=== PATIENT | female | born 1960 | race Caucasian/White ===

== ENCOUNTER → 2017-09-07 | Day surgery (SDC) | payer BC ==
[~2017-09-07] MED LIST: Bupivacaine 0.5% 30 ML SDV ONE; Dexamethasone 4 MG/ML 5 ML MDV ONE; HYDROmorphone 0.5 MG/0.5 ML Syringe IVPUSH PRN; HYDROmorphone 1 MG/ML Syringe ONE; Ketorolac 30 MG/ML SDV IVPUSH ONE; Lactated Ringers 1,000 ML ONE; Lidocaine 1% with EPINEPHrine 1:100,000 20 ML MDV ONE; Lidocaine 1%/Sod Bicarbonate in NS 8.4% 1 ML Syringe IV PRN; Midazolam 1 MG/ML 2 ML SDV ONE; Neostigmine Methylsulfate 1 MG/ML 5 ML Syringe ONE; Ondansetron 4 MG/2 ML SDV IVPUSH PRN; Ondansetron 4 MG/2 ML SDV ONE; Propofol 200 MG/20 ML SDV ONE; Rocuronium 50 MG/5 ML Vial ONE; Scopolamine 1 MG Transdermal Patch TOP ONE; Sodium Chloride 0.9% 10 ML Syringe FLUSH PRN; Sodium Chloride 0.9% 50 ML SDV ONE; ceFAZolin 1 GM Vial ONE; fentaNYL 100 MCG/2 ML SDV IVPUSH PRN; fentaNYL 250 MCG/5 ML SDV ONE
[2017-09-07] MEDS: Lactated Ringers 1,000 ML IV SCH ×2 (06:50→10:29)
--- NOTE | 2017-09-07 07:22 | PCM.PREANE ---
Preanesthetic Assessment - Anesthesia/Transfusion/Family Hx Anesthesia History: Prior Anesthesia Without Reaction Type of Anesthesia Reaction: Excessive Nausea/Vomiting Family History of Anesthesia Reaction: No Transfusion History: No Prior Transfusion(s) - Review of Systems General: No Symptoms, Other Pulmonary: Other (sleep apnea utilizing a CPAP) Cardiovascular: Other (HTN, high cholesterol) Gastrointestinal: Other (GERD) Neurological: Headache (migraines on a weekly basis, doctoring for ruling out MS ), Other (vertigo, migraines) - Physical Assessment NPO Status Date: 09/06/17 NPO Status Time: 22:00 Pulse: 64 O2 Sat by Pulse Oximetry: 96 Respiratory Rate: 16 Blood Pressure: 115/85 Weight: 78.018 kg ASA Class: 2 Mental Status: Alert & Oriented x3 Airway Class: Mallampati = 2 Dentition: Reports: Normal Dentition Thyro-Mental Finger Breadths: 3 Mouth Opening Finger Breadths: 3 ROM/Head Extension: Full (pt complains of TMJ and right jaw pops out of place) Lungs: Clear to Auscultation, Normal Respiratory Effort Cardiovascular: Regular Rate, Regular Rhythm - Lab Values: Laboratory Last Values WBC 5.56 K/mm3 (3.98-10.04) 09/07/17 06:35 RBC 4.55 M/mm3 (3.98-5.22) 09/07/17 06:35 Hgb 13.0 gm/L (11.2-15.7) 09/07/17 06:35 Hct 39.6 % (34.1-44.9) 09/07/17 06:35 MCV 87.0 fl (79.4-94.8) 09/07/17 06:35 MCH 28.6 pg (25.6-32.2) 09/07/17 06:35 MCHC 32.8 g/dl (32.2-35.5) 09/07/17 06:35 RDW Std Deviation 41.7 fL (36.4-46.3) 09/07/17 06:35 Plt Count 240 K/mm3 (182-369) 09/07/17 06:35 MPV 10.5 fl (9.4-12.3) 09/07/17 06:35 Neut % (Auto) 53.9 % (34.0-71.1) 09/07/17 06:35 Lymph % (Auto) 33.3 % (19.3-51.7) 09/07/17 06:35 Hand % (Auto) 7.4 % (4.7-12.5) 09/07/17 06:35 Eos % (Auto) 4.1 (0.7-5.8) 09/07/17 06:35 Baso % (Auto) 1.1 % (0.1-1.2) 09/07/17 06:35 Neut # (Auto) 3.00 K/mm3 (1.56-6.13) 09/07/17 06:35 Lymph # (Auto) 1.85 K/mm3 (1.18-3.74) 09/07/17 06:35 Hand # (Auto) 0.41 K/mm3 (0.24-0.36) H 09/07/17 06:35 Eos # (Auto) 0.23 K/mm3 (0.04-0.36) 09/07/17 06:35 Baso # (Auto) 0.06 K/mm3 (0.01-0.08) 09/07/17 06:35 Blood Type O NEGATIVE 09/07/17 06:35 - Allergies Allergies/Adverse Reactions: Allergies Allergy/AdvReac Type Severity Reaction Status Date / Time Dairy Products Allergy Hives Verified 07/22/16 18:01 gluten Allergy Cough Verified 07/22/16 16:50 wheat Allergy Cough Verified 07/22/16 16:50 baking yeast Allergy Hives Uncoded 07/22/16 18:01 armijo's yeast Allergy Hives Uncoded 07/22/16 18:01 cucumbers Allergy Hives Uncoded 07/22/16 18:01 latex Allergy Airway Uncoded 07/22/16 16:49 Tightness kwan Allergy Hives Uncoded 07/22/16 18:01 tomatoes Allergy Hives Uncoded 07/22/16 18:01 - Blood Blood Available: No Product(s) Available: None - Anesthesia Plan Pre-Op Medication Ordered: None Beta Nabeel: Propranolol Med Last Dose Date: 09/07/17 Med Last Dose Time: 06:50 - Acknowledgements Anesthesia Type Planned: General Anesthesia Pt an Appropriate Candidate for the Planned Anesthesia: Yes Alternatives and Risks of Anesthesia Discussed w Pt/Guardian: Yes Pt/Guardian Understands and Agrees with Anesthesia Plan: Yes PreAnesthesia Questionnaire Cardiovascular History: Reports: High Cholesterol - SUBSTANCE USE Smoking Status *Q: Never Smoker Second Hand Smoke Exposure: No - HOME MEDS Home Medications: Home Meds Acetaminophen with Codeine [Tylenol with Codeine #3 Tablet] 1 tab PO Q6H PRN [History] Pravastatin Sodium [Pravastatin (Pravachol)] 40 mg PO DAILY 07/22/16 [History] - CURRENT (IN HOUSE) MEDS Current Meds: Current Medications Lactated Ringer's (Ringers, Lactated) 1,000 mls @ 125 mls/hr IV ASDIRECTED BELLA Stop: 09/07/17 18:00 Lidocaine/Sodium Bicarbonate (Buffered Lidocaine 1% In Ns 8.4%) 0.25 ml IV ONETIME PRN PRN Reason: Prior to IV Start Stop: 09/07/17 18:00 Sodium Chloride (Saline Flush) 10 ml FLUSH ASDIRECTED PRN PRN Reason: Keep Vein Open Stop: 09/07/17 18:00 Discontinued Medications Cefazolin Sodium (Ancef) Confirm Administered Dose 2 gm .ROUTE .STK-MED ONE Stop: 09/07/17 07:15 Dexamethasone (Dexamethasone) Confirm Administered Dose 20 mg .ROUTE .STK-MED ONE Stop: 09/07/17 07:15 Fentanyl (Sublimaze) Confirm Administered Dose 250 mcg .ROUTE .STK-MED ONE Stop: 09/07/17 07:15 Hydromorphone HCl (Dilaudid) Confirm Administered Dose 1 mg .ROUTE .STK-MED ONE Stop: 09/07/17 07:15 Midazolam HCl (Versed 1 Mg/Ml) Confirm Administered Dose 2 mg .ROUTE .STK-MED ONE Stop: 09/07/17 07:15 Ondansetron HCl (Zofran) Confirm Administered Dose 4 mg .ROUTE .STK-MED ONE Stop: 09/07/17 07:15 Propofol (Diprivan 20 Ml) Confirm Administered Dose 200 mg .ROUTE .STK-MED ONE Stop: 09/07/17 07:15 Rocuronium [place] (Zemuron) Confirm Administered Dose 50 mg .ROUTE .STK-MED ONE Stop: 09/07/17 07:15
--- NOTE | 2017-09-07 09:35 | PCM.POSTAN ---
POST ANESTHESIA ASSESSMENT - MENTAL STATUS Mental Status: Alert, Oriented - VITAL SIGNS Pulse Rate: 59 SaO2: 98 Resp Rate: 14 Blood Pressure: 107/67 Temperature: 36.1 C - RESPIRATORY Respiratory Status: Respiratory Rate WNL, Airway Patent, O2 Saturation Stable, Supplemental Oxygen - CARDIOVASCULAR CV Status: Pulse Rate WNL, Blood Pressure Stable - GASTROINTESTINAL GI Status: No Symptoms - PAIN Pain Score: 0 - POST OP HYDRATION Hydration Status: Adequate & Stable
--- NOTE | 2017-09-07 09:47 | PCM.OPNOTE ---
- General Post-Op/Procedure Note Date of Surgery/Procedure: 09/07/17 Operative Procedure(s): Laparoscopically assisted total vaginal hysterectomy with bilateral salpingo-oophorectomy Findings: Patient is noted to have normal size uterus, reasonable relaxation noted. Fallopian tubes appeared to be status post tubal ligation. Ovaries appeared be normal, small, consistent with postmenopausal status. Appendix was surgically absent. Liver edge was normal. Anterior and posterior cul-de-sacs were without significant scarring. Pre Op Diagnosis: Postmenopausal uterine bleeding Post-Op Diagnosis: Same Anesthesia Technique: General ET Tube Other Anesthesia Type: Marcaine 0.5%20 mL total, lidocaine quarter % with epinephrine-20 mL Primary Surgeon: Mars Gaona Secondary Surgeon: Werner Gerard Anesthesia Provider: Dayna Alanis Medical Artist: Jose Bird Reason Medical Artist Was Necessary: Patient safety, quality of care, retraction Role of Medical Artist: Retraction and assistance in surgery. Fluid Replacement, Intraop: 2,700 Output, Urine Amount: 600 EBL in mLs: 100 Drain/Tube Comments:: Indwelling bladder catheter during surgery only. Removed at the end of the case. Complications: None Condition: Good Free Text/Narrative:: Surgery duration: 54 minutes The patient was taken to the operating room placed in supine position on the operating table. She received 2 g of Ancef preoperatively for infection prophylaxis. She had signed consent previously. After adequate anesthesia patient was placed in a dorsal lithotomy position. It should be noted she had sequential compression stockings in place for DVT prophylaxis. A uterine manipulator was placed as was an latex free indwelling bladder catheter. This was done after adequate prepping and draping. The patient was placed in supine position and four laparoscopic port sites were developed. Marcaine 0.5% approximately 3-5 mL was injected at each site. Varies needle was placed and pneumoperitoneum was achieved with 3 L of CO2. Infraumbilical, suprapubic and 2 lateral port sites were developed. Under laparoscopic guidance the upper portion of the hysterectomy was performed. The right infundibulopelvic ligament was elevated and crossclamped using the endoseal computerized cautery device. The round ligament was taken down to the broad ligament. At this time attention was turned to the left side and the left infundibulopelvic ligament and the triple ligament were then taken down in a similar fashion. Broad ligament was taken down to the area of the uterine vasculature. Uterine vasculature was developed in the usual fashion using the cautery system. Both uterine arteries were identified and developed. Vaginal approach was then undertaken. The patient was placed in the dorsal lithotomy position and a weighted speculum was placed in the vagina. The cervix was injected with lidocaine quarter percent with epinephrine 20 mL total. A full circumference incision was made through the epithelium around the cervix. Posterior cul-de-sac was entered without problems. The left uterosacral ligament and then the right uterosacral were taken down using the Enseal vessel closure system. The cardinal ligament and what remained of the uterine vascular vessels and cervical branches of the vessels were managed with the Enseal vessel closure system on each side. Anterior cul-de-sac was then entered and the remaining portion of broad ligament on the right side and a small portion of broad ligament remaining on the left side were then developed in the usual fashion. Uterus was then removed. At this point the uterus was completely removed and sent as specimen. The vaginal cuff was then run with a locked running suture of 0 Monocryl from the 2 o'clock position to the 10 o'clock position. The vagina was closed with a running locked suture of 0 Monocryl. Hemostasis was confirmed this time and no bleeding was noted. Laparoscopy was then performed to ensure hemostasis. Pneumoperitoneum was reestablished and the laparoscope was placed. The pelvis was found to be hemostatically intact. There was no evidence of any bowel adhesion to the vaginal cuff area noted. The sleeves were removed under direct visualization and the upper sleeve was removed after reversal of the pneumoperitoneum. Each of these sites were closed with a single interrupted suture of 3-0 Monocryl. They were further approximated with Dermabond skin glue. At this point the patient was awakened from general endotracheal anesthesia. The Lynch catheter had been removed by this time. She is discharged from the operating room in good condition.
[2017-09-07] MEDS: Acetaminophen/oxyCODONE 325-5 MG Tab PO PRN ×2 (12:15→14:00)
[2017-09-07 14:28] VITALS: BP 110/66
== END | disposition home or self-care (01) ==
LOC: JD.SDS 06:24
PROVIDERS: ATTEND Obstetrics & Gynecology
DX: D25.9 Leiomyoma of uterus, unspecified (principal); N72 Inflammatory disease of cervix uteri; N80.0 Endometriosis of uterus; J30.9 Allergic rhinitis, unspecified; M19.90 Unspecified osteoarthritis, unspecified site; H93.299 Other abnormal auditory perceptions, unspecified ear; H53.8 Other visual disturbances; K21.9 Gastro-esophageal reflux disease without esophagitis; I10 Essential (primary) hypertension; N87.9 Dysplasia of cervix uteri, unspecified; G47.00 Insomnia, unspecified; G43.909 Migraine, unspecified, not intractable, without status migrainosus; E78.00 Pure hypercholesterolemia, unspecified; Z91.018 Allergy to other foods; Z91.012 Allergy to eggs; Z91.048 Other nonmedicinal substance allergy status; Z91.040 Latex allergy status; Z79.899 Other long term (current) drug therapy; Z90.49 Acquired absence of other specified parts of digestive tract; Z90.89 Acquired absence of other organs; Z98.890 Other specified postprocedural states
CPT/HCPCS: 36415; 58552; 80053; 81001; 85025; 86850; 86900; 86901; A9270; J0690; J1100; J1170; J1885; J2250; J2405; J2710; J3010; J7120; 00840; J2704

== ENCOUNTER 2020-11-14 09:20 | Day surgery (SDC) | payer BC, OTHER ==
[~2020-11-14 09:20] MED LIST changes: -Bupivacaine 0.5% 30 ML SDV ONE; -Dexamethasone 4 MG/ML 5 ML MDV ONE; -HYDROmorphone 0.5 MG/0.5 ML Syringe IVPUSH PRN; -HYDROmorphone 1 MG/ML Syringe ONE; -Ketorolac 30 MG/ML SDV IVPUSH ONE; +Lactated Ringers 1,000 ML IV SCH; -Lactated Ringers 1,000 ML ONE; -Lidocaine 1% with EPINEPHrine 1:100,000 20 ML MDV ONE; +Lidocaine 1%/Sod Bicarbonate in NS 8.4% 1 ML Syringe IDERM PRN; -Lidocaine 1%/Sod Bicarbonate in NS 8.4% 1 ML Syringe IV PRN; -Midazolam 1 MG/ML 2 ML SDV ONE; -Neostigmine Methylsulfate 1 MG/ML 5 ML Syringe ONE; -Ondansetron 4 MG/2 ML SDV IVPUSH PRN; -Ondansetron 4 MG/2 ML SDV ONE; -Propofol 200 MG/20 ML SDV ONE; -Rocuronium 50 MG/5 ML Vial ONE; -Scopolamine 1 MG Transdermal Patch TOP ONE; -Sodium Chloride 0.9% 50 ML SDV ONE; -ceFAZolin 1 GM Vial ONE; -fentaNYL 100 MCG/2 ML SDV IVPUSH PRN; -fentaNYL 250 MCG/5 ML SDV ONE
[2020-11-14] MEDS ORDERED: Scopolamine 1.5 MG Transdermal Patch TOP ONE (10:10)
[2020-11-14] MEDS ORDERED: Ropivacaine 0.5% 5 MG/ML 30 ML SDV ONE (10:11)
[2020-11-14] MEDS ORDERED: Dexmedetomidine 200 MCG/2 ML SDV ONE (10:11)
[2020-11-14] MEDS ORDERED: Midazolam 1 MG/ML 2 ML SDV ONE (10:12)
[2020-11-14] MEDS ORDERED: fentaNYL 100 MCG/2 ML SDV ONE (10:14)
--- NOTE | 2020-11-14 10:14 | PCM.PREANE ---
Preanesthetic Assessment - Anesthesia/Transfusion/Family Hx Anesthesia History: Prior Anesthesia Without Reaction Family History of Anesthesia Reaction: No Transfusion History: No Prior Transfusion(s) - Review of Systems General: No Symptoms Pulmonary: No Symptoms Cardiovascular: No Symptoms Gastrointestinal: Other (Occasional nausea/heartburn. No symptoms today. ) Neurological: Pre-Existing Deficit (Neck pain from injury at c3-4, many years of physical therapy but does still have pain with extension. ), Other Other: Reports: Neck Pain (TMY, right joint most painful. ), Anxiety - Physical Assessment NPO Status Date: 11/13/20 NPO Status Time: 22:30 Vital Signs: Last Vital Signs Temp 36.3 C 11/14/20 09:15 Pulse 84 11/14/20 09:15 Resp 17 11/14/20 09:15 BP 117/74 11/14/20 09:15 Pulse Ox 95 11/14/20 09:15 Height: 1.6 m Weight: 71.8 kg ASA Class: 2 Mental Status: Alert & Oriented x3 Airway Class: Mallampati = 2 Dentition: Reports: Bridge (Permanent. ) Thyro-Mental Finger Breadths: 3 Mouth Opening Finger Breadths: 3 ROM/Head Extension: Full Lungs: Clear to Auscultation, Normal Respiratory Effort Cardiovascular: Regular Rate, Regular Rhythm - Lab Values: Laboratory Last Values MRSA (PCR) Negative 11/06/20 16:10 - Allergies Allergies/Adverse Reactions: Allergies Allergy/AdvReac Type Severity Reaction Status Date / Time banana Allergy Cannot Verified 11/13/20 11:57 Remember barley Allergy Cannot Verified 11/13/20 11:57 Remember black pepper Allergy Cannot Verified 11/13/20 11:57 Remember blackberry Allergy Cannot Verified 11/13/20 11:57 Remember cheese Allergy Cannot Verified 11/13/20 11:57 Remember cranberry Allergy Cannot Verified 11/13/20 11:57 Remember cucumber Allergy Cannot Verified 11/13/20 11:57 Remember Dairy Products Allergy Hives Verified 11/13/20 11:57 Egg Derived Allergy Cannot Verified 11/13/20 11:57 Remember gluten Allergy Cough Verified 11/13/20 11:57 kiwi Allergy Cannot Verified 11/13/20 11:57 Remember Latex, Natural Rubber Allergy Cannot Verified 11/13/20 11:57 Remember Milk Containing Products Allergy Cannot Verified 11/13/20 11:57 Remember mushroom Allergy Cannot Verified 11/13/20 11:57 Remember pineapple Allergy Cannot Verified 11/13/20 11:57 Remember kwan Allergy Cannot Verified 11/13/20 11:57 Remember tomato Allergy Cannot Verified 11/13/20 11:57 Remember wheat Allergy Cough Verified 11/13/20 11:57 Yeast Allergy Cannot Verified 11/13/20 11:57 Remember disinfectant products Allergy Cannot Uncoded 11/13/20 11:57 Remember white pepper Allergy Cannot Uncoded 11/13/20 11:57 Remember - Anesthesia Plan Pre-Op Medication Ordered: Anxiolytic - Acknowledgements Anesthesia Type Planned: Regional Block (Preopertive nerve block for post operative painn control requested by Dr. Galloway. ), MAC Pt an Appropriate Candidate for the Planned Anesthesia: Yes Alternatives and Risks of Anesthesia Discussed w Pt/Guardian: Yes Pt/Guardian Understands and Agrees with Anesthesia Plan: Yes PreAnesthesia Questionnaire HEENT History: Reports: Allergic Rhinitis, Sinusitis, Other (See Below) Other HEENT History: tmj pain Cardiovascular History: Reports: High Cholesterol, Other (See Below) Other Cardiovascular History: SVT Respiratory History: Reports: Sleep Apnea, Other (See Below) Other Respiratory History: uses cpap Gastrointestinal History: Reports: GERD Genitourinary History: Reports: None Other OB/BYN History: menorrhagia Musculoskeletal History: Reports: Arthritis, Osteoarthritis, Other (See Below) Other Musculoskeletal History: hallux rigidus, hammertoe, foot dislocation, foot pain Neurological History: Reports: Migraines, Vertigo Other Psychiatric History: fatigue, insomnia Endocrine/Metabolic History: Reports: Diabetes, Gestational Hematologic History: Reports: None Immunologic History: Reports: None Oncologic (Cancer) History: Reports: Basal Cell Carcinoma Dermatologic History: Reports: Eczema - Past Surgical History Head Surgeries/Procedures: Reports: None HEENT Surgical History: Reports: Tonsillectomy, Visual Cardiovascular Surgical History: Reports: None Respiratory Surgical History: Reports: None GI Surgical History: Reports: Appendectomy, Colonoscopy, EGD Female Surgical History: Reports: Section, Hysterectomy Male Surgical History: Reports: None Endocrine Surgical History: Reports: None Neurological Surgical History: Reports: None Other Musculoskeletal Surgeries/Procedures:: bunion correction syrgerym foot surgery, knee injections, fusion 2nd toe Oncologic Surgical History: Reports: None - SUBSTANCE USE Tobacco Use Status *Q: Never Tobacco User Days Per Week of Alcohol Use: 1 Number of Drinks Per Day: 1 Total Drinks Per Week: 1 Recreational Drug Use History: No - HOME MEDS Home Medications: Home Meds Eszopiclone 2 mg PO BEDTIME PRN 09/07/17 [History] L.acidoph,Paracasei, B.lactis [Probiotic] 1 cap PO DAILY 09/07/17 [History] Multivitamin [Multivitamins] 1 each PO DAILY 09/07/17 [History] Betamethasone Dipropionate [Diprosone 0.05% Crm] 1 dose TOP ASDIRECTED PRN 11/13/20 [History] Calcium Carb/Vitamin D3/Vit K1 [Calcium + D Soft Chewable Tab] 1 tab PO DAILY 11/13/20 [History] Cholecalciferol (Vitamin D3) [Vitamin D3] 1,000 unit PO DAILY 11/13/20 [History] Diclofenac Sodium [Voltaren 1% Gel] 1 dose TOP TID PRN 11/13/20 [History] Halobetasol [Ultravate] 1 dose TOP ASDIRECTED PRN 11/13/20 [History] Naproxen [Naprosyn] 500 mg PO Q6H PRN 11/13/20 [History] Naratriptan HCl [Amerge] 2.5 mg PO ASDIRECTED PRN 11/13/20 [History] Rizatriptan Benzoate [Rizatriptan] 10 mg PO ASDIRECTED PRN 11/13/20 [History] Rosuvastatin [Crestor] 10 mg PO DAILY 11/13/20 [History] Turmeric Root Extract [Turmeric Curcumin] 500 mg PO BEDTIME 11/13/20 [History] Verapamil HCl [Verapamil ER] 120 mg PO DAILY 11/13/20 [History] Aspirin [Aspirin EC] 325 mg PO BID #84 tab 11/14/20 [Rx] oxyCODONE 5 - 10 mg PO Q6H PRN #30 tab 11/14/20 [Rx]
[2020-11-14] MEDS ORDERED: Propofol 200 MG/20 ML SDV ONE ×4 (10:15→12:37)
[2020-11-14] MEDS ORDERED: Lidocaine 1% 4 ML ONE (11:01)
[2020-11-14] MEDS ORDERED: ceFAZolin 1 GM Vial ONE (11:06)
[2020-11-14] MEDS ORDERED: Dexamethasone 4 MG/ML 5 ML MDV ONE (11:17)
--- NOTE | 2020-11-14 11:35 | PCM.PRNOTE ---
- Free Text/Narrative Note: Postoperative regional pain control requested by surgeon. Pre-op Dx: Left metatarsalgia, hallux rigidus Surgery : Left first metatarsophalangeal joint fusion with left IIId metatarsal shortening osteotomy Anesthesia Procedure: Left Popliteal block and Left saphenous block at the ankle with U/S guidance Requesting physician: Dr. Cuong Lopez Risks and benefits discussed with the patient preoperatively including infection, bleeding, incomplete or failed block, possible nerve damage, local anesthetic toxicity. Chart reviewed, VS stable. Permit signed. Patient in PACU holding area, stable , alert and awake. Time out performed at 10:29. Oxygen 3L via NC. Patient is in right lateral decubitus position. Left lateral thigh area above the knee was prepped with Chloraprep x 1 and allowed to dry. Midazolam IV 6 mg given incrementally. Under aseptic technique, the Left common peroneal and Left tibial nerves were identified under ultrasound prior to needle insertion. Local infiltration with 1% Lidocaine. 4" Stimuplex needle #20 G was inserted under US guidance. Neuromuscular response was elicited with noted foot twitch at 0.6 mA. Under direct visualization of needle tip the injection of 10 mls of 2% Lidocaine with 1:200k epinephrine and then 0.5% Ropivacaine with 1:200k epinephrine, 20 mls (mixed with 8 mg of Dexamethasone and 40 mcg of Dexmedetomidine), in divided doses, maintaining negative aspiration was completed without problems. After that, the medial surface of the left leg above the ankle was prepped with Chloraprep and allowed to dry. Under ultrasound guidance left great saphenous vein was identified and using a 1" 24 G needle 10 mls of Ropivacaine 0.5% were injected around it in a crescent shape fashion. No local anesthetic toxicity was noted. Patient is awake, stable and tolerated the procedure well. Please see attached U/S images Time: 10:29 - 10:39
[2020-11-14] MEDS ORDERED: Lidocaine 2% with EPINEPHrine 1:200,000 20 ML SDV ONE (11:56)
[2020-11-14] MEDS: Triamcinolone Acetonide 40 MG/ML 1 ML SDV ONE ×2 (12:21→12:50)
[2020-11-14] MEDS: Bupivacaine 0.25% 10 ML SDV ONE ×2 (12:24→12:50)
--- NOTE | 2020-11-14 13:27 | CR ---
Left first toe study: Multiple radiographic fluoroscopic spot views were obtained. Study obtained utilizing C-arm device in the operating room. Study shows placement of plate and screws across the first MTP joint. Additional screw is seen. Additional pin is seen across the shaft of the second and third metatarsals. Fluoroscopy time is given as 26.6 seconds. Impression: 1. Procedural study as noted above. Diagnostic code #2
--- NOTE | 2020-11-14 13:36 | PCM48HPAN ---
Post Anesthesia Note - EVALUATION WITHIN 48HRS OF ANESTHETIC Vital Signs in Normal Range: Yes Patient Participated in Evaluation: Yes Respiratory Function Stable: Yes Airway Patent: Yes Cardiovascular Function Stable: Yes Hydration Status Stable: Yes Pain Control Satisfactory: Yes Nausea and Vomiting Control Satisfactory: Yes Mental Status Recovered: Yes Vital Signs: Last Vital Signs Temp 97.1 F 11/14/20 12:57 Pulse 71 11/14/20 13:20 Resp 20 11/14/20 13:20 BP 107/86 11/14/20 13:20 Pulse Ox 99 11/14/20 13:20
[2020-11-14 15:00] VITALS: BP 122/71; PULSE 71
--- NOTE | 2020-11-26 14:20 | PCM.OPNOTE ---
- General Post-Op/Procedure Note Date of Surgery/Procedure: 11/14/20 Operative Procedure(s): left first MTP joint fusion with left third metatarsal shortening osteotomy Pre Op Diagnosis: left foot hallux rigidus with left third metatarsalgia Post-Op Diagnosis: Same Anesthesia Technique: MAC, Regional Block Primary Surgeon: Cuong Galloway Anesthesia Provider: Osvaldo Kuhn Cabin Agent: Malia Mart EBL in mLs: 5 Complications: None Condition: Good
--- NOTE | 2020-11-26 15:06 | OR ---
DATE OF OPERATION: 11/14/2020 SURGEON: Cuong Galloway MD OPERATION PERFORMED: Left 1st metatarsophalangeal joint fusion with left 3rd metatarsal shortening osteotomy. PREOPERATIVE DIAGNOSIS: Left foot hallux rigidus with left 3rd metatarsalgia. POSTOPERATIVE DIAGNOSIS: Left foot hallux rigidus with left 3rd metatarsalgia. ANESTHESIA: MAC with regional ankle block. ANESTHESIA PROVIDER: Yoly Beaver. NOVELTIES SALES REPRESENTATIVE: Malia Mart PA-C ESTIMATED BLOOD LOSS: Less than 5 mL. COMPLICATIONS: None. CONDITION: Stable. DESCRIPTION OF PROCEDURE: The patient was identified in the preoperative holding area. Proper site was marked and identified by surgeon. The patient was taken back to the operative theater, where after adequate anesthesia, the patient's left lower extremity had a nonsterile tourniquet applied and then sterilely prepped and draped in the usual sterile fashion. OR time-out was performed. The patient received 2 g IV Ancef. Left lower extremity was exsanguinated. Tourniquet was insufflated to 250 mmHg. At this time, attention was turned to the 1st MTP joint. Dorsal incision was made over the 1st MTP joint. The patient was noted to have a lot of scarred adhesions around the 1st MTP joint. I did release the collateral ligaments. I was then able to expose the 1st metatarsal head. Guide pin was then placed in a center-center position on C-arm fluoroscopy on both AP and lateral views and the Diane 1st MTP fusion step reamers were then utilized first at 22 and then at 20. 20 was found to have adequate purchase and back to a good bony bleeding cancellous bone. At this time, the guide pin was then removed, placed kvng center-center position in the proximal phalanx of the 1st MTP and the corresponding concave reamer of a size 20 was utilized on the proximal phalanx. Osteotomes were then rongeured off both the 1st metatarsal and the proximal phalanx. Next, guide pin was placed in a retrograde fashion from the proximal phalanx across the 1st metatarsal. Drill hole was then drilled and it was measured and a 3.0 cannulated Diane compression screw was placed. It was found to have adequate compression. Next, the locking dorsal T- plate was placed under direct C-arm fluoroscopy. It was found to be in proper position. At this time, 2 2.7 screws were placed both proximally and distally to the fusion site. It was found to be roughly 10 degrees dorsiflexion at the 1st MTP joint and proper alignment. At this time, attention was turned to the 3rd metatarsal and dorsal incision was made centered between the 3rd and 4th metatarsals. This was taken down making sure to keep tendons intact and protect the neurovascular bundle. The 3rd metatarsal was exposed. C-arm fluoroscopy then was utilized to tomasz the spots for the osteotomy site. A small oscillating saw was then used for a diagonal osteotomy of the metatarsal shaft. The proximal portion was then rongeured and it was shifted proximally to the point where the cascade of the toes showed that the 3rd was shorter than the 2nd and a little longer than the 4th. At this time, 2 K-wires were placed for 2 2.0 cannulated [place] screws. These were then drilled and found to have adequate compression of the osteotomy site with good placement of the metatarsal on both AP and lateral views under C-arm fluoroscopy. Adequate saline was irrigated through both incisions. 3-0 Vicryl was used subcutaneously and nylon was used for closure of the skin. The patient was placed in a sterile soft dressing and a posterior slab splint and sent to the PACU in stable condition. PIETER /[id number] TICO
== END 2020-11-14 14:55 | disposition home or self-care (01) ==
LOC: JD.SDS 09:20
PROVIDERS: ATTEND Orthopaedic Surgery
DX: M77.42 Metatarsalgia, left foot (principal); M20.22 Hallux rigidus, left foot; M77.41 Metatarsalgia, right foot; M20.21 Hallux rigidus, right foot; G47.33 Obstructive sleep apnea (adult) (pediatric); E78.00 Pure hypercholesterolemia, unspecified; Z91.011 Allergy to milk products; Z91.012 Allergy to eggs; Z91.040 Latex allergy status; Z91.018 Allergy to other foods; Z91.09 Other allergy status, other than to drugs and biological substances; Z79.899 Other long term (current) drug therapy; Z98.890 Other specified postprocedural states
CPT/HCPCS: 28308; 28750; 76000; 87641; A9270; C1713; J0690; J1100; J2250; J2704; J2795; J3010; J3301; J3490; J7120; 01480; 64450; 76942

== ENCOUNTER 2021-08-14 08:52 | Day surgery (SDC) | payer OTHER ==
--- NOTE | 2021-08-14 07:46 | PCM.PREANE ---
Preanesthetic Assessment - Procedure Proposed Procedure: Right First Metatarsophalangeal Joint Fusion - Anesthesia/Transfusion/Family Hx Anesthesia History: Prior Anesthesia Without Reaction Type of Anesthesia Reaction: Excessive Nausea/Vomiting (Patient prefers no scopalamine patch.) Family History of Anesthesia Reaction: No Transfusion History: No Prior Transfusion(s) Intubation History: Unknown - Review of Systems General: No Symptoms Pulmonary: No Symptoms (FELIPE with CPAP, ETOH: occasionally) Cardiovascular: No Symptoms (History of cholesterol, History of SVT-with / ) Gastrointestinal: No Symptoms (GERD-improved.) Neurological: No Symptoms (History of vertigo, motion sickness), Headache (migraines-on verapamil) Other: Reports: None (History of TMJ (right joint most painful)), Sinus Problem (recent sinusitis: symptoms improving.), Neck Pain (from C3-4 many years of physical therapy(1996) but does still has pain with extension.), Anxiety - Physical Assessment NPO Status Date: 08/13/21 NPO Status Time: 23:00 Vital Signs: HR: 80 Sat: 96% Temp: 97.8 B/P: 125/94 Resp: 16 Height: 1.6 m Weight: 75 kg ASA Class: 2 Mental Status: Alert & Oriented x3 Airway Class: Mallampati = 2 Dentition: Reports: Bridge (permanent) Thyro-Mental Finger Breadths: 3 Mouth Opening Finger Breadths: 3 ROM/Head Extension: Full Lungs: Clear to Auscultation, Normal Respiratory Effort Cardiovascular: Regular Rate, Regular Rhythm, No Murmurs - Lab Values: All labs reviewed and noted and within acceptable ranges to proceed with scheduled procedure. - Allergies Allergies/Adverse Reactions: Allergies Allergy/AdvReac Type Severity Reaction Status Date / Time banana Allergy Cannot Verified 08/13/21 18:40 Remember barley Allergy Cannot Verified 08/13/21 18:40 Remember black pepper Allergy Cannot Verified 08/13/21 18:40 Remember blackberry Allergy Cannot Verified 08/13/21 18:40 Remember cheese Allergy Cannot Verified 08/13/21 18:40 Remember cranberry Allergy Cannot Verified 08/13/21 18:40 Remember cucumber Allergy Cannot Verified 08/13/21 18:40 Remember Dairy Products Allergy Hives Verified 08/13/21 18:40 Egg Derived Allergy Cannot Verified 08/13/21 18:40 Remember kiwi Allergy Cannot Verified 08/13/21 18:40 Remember Latex, Natural Rubber Allergy Cannot Verified 08/13/21 18:40 Remember Milk Containing Products Allergy Cannot Verified 08/13/21 18:40 Remember mushroom Allergy Cannot Verified 08/13/21 18:40 Remember pineapple Allergy Cannot Verified 08/13/21 18:40 Remember kwan Allergy Cannot Verified 08/13/21 18:40 Remember tomato Allergy Cannot Verified 08/13/21 18:40 Remember Yeast Allergy Cannot Verified 08/13/21 18:40 Remember gluten AdvReac Cough Verified 08/13/21 18:40 wheat AdvReac Cough Verified 08/13/21 18:40 disinfectant products Allergy Cannot Uncoded 08/13/21 18:40 Remember white pepper Allergy Cannot Uncoded 08/13/21 18:40 Remember - Anesthesia Plan Pre-Op Medication Ordered: None - Acknowledgements Anesthesia Type Planned: Regional Block (Right Popliteal Nerve Block Possible Right Saphenous Nerve block under US guidance for post operative pain control requested by Dr. Galloway.), MAC Pt an Appropriate Candidate for the Planned Anesthesia: Yes Alternatives and Risks of Anesthesia Discussed w Pt/Guardian: Yes Pt/Guardian Understands and Agrees with Anesthesia Plan: Yes PreAnesthesia Questionnaire HEENT History: Reports: Allergic Rhinitis, Sinusitis Other HEENT History: tmj pain Cardiovascular History: Reports: High Cholesterol Other Cardiovascular History: SVT Respiratory History: Reports: None, Other (See Below) Other Respiratory History: uses cpap Gastrointestinal History: Reports: GERD Genitourinary History: Reports: None Other OB/BYN History: menorrhagia, 's Musculoskeletal History: Reports: Arthritis Other Musculoskeletal History: hallux rigidus, hammertoe, foot dislocation, foot pain Neurological History: Reports: Migraines, Vertigo Other Psychiatric History: fatique, insomnia Endocrine/Metabolic History: Reports: Diabetes, Gestational Hematologic History: Reports: None Immunologic History: Reports: None Oncologic (Cancer) History: Reports: Basal Cell Carcinoma Dermatologic History: Reports: Eczema - Infectious Disease History Infectious Disease History: Reports: None - Past Surgical History Head Surgeries/Procedures: Reports: None HEENT Surgical History: Reports: Tonsillectomy, Visual Cardiovascular Surgical History: Reports: None Respiratory Surgical History: Reports: None GI Surgical History: Reports: Appendectomy, Colonoscopy, EGD Female Surgical History: Reports: Section, Hysterectomy Male Surgical History: Reports: None Endocrine Surgical History: Reports: None Neurological Surgical History: Reports: None Other Musculoskeletal Surgeries/Procedures:: bunion correction syrgerym foot surgery, knee injections, fusion 2nd toe Oncologic Surgical History: Reports: None - SUBSTANCE USE Tobacco Use Status *Q: Never Tobacco User Recreational Drug Use History: No - HOME MEDS Home Medications: Home Meds Eszopiclone 2 mg PO BEDTIME PRN 09/07/17 [History] Multivitamin [Multivitamins] 1 each PO DAILY 09/07/17 [History] Betamethasone Dipropionate [Diprosone 0.05% Crm] 1 dose TOP ASDIRECTED PRN 11/13/20 [History] Calcium Carb/Vitamin D3/Vit K1 [Calcium + D Soft Chewable Tab] 1 tab PO DAILY 11/13/20 [History] Cholecalciferol (Vitamin D3) [Vitamin D3] 1,000 unit PO DAILY 11/13/20 [History] Diclofenac Sodium [Voltaren 1% Gel] 1 dose TOP TID PRN 11/13/20 [History] Halobetasol [Ultravate] 1 dose TOP ASDIRECTED PRN 11/13/20 [History] Naratriptan HCl [Amerge] 2.5 mg PO ASDIRECTED PRN 11/13/20 [History] Rizatriptan Benzoate [Rizatriptan] 10 mg PO ASDIRECTED PRN 11/13/20 [History] Rosuvastatin [Crestor] 10 mg PO DAILY 11/13/20 [History] Turmeric Root Extract [Turmeric Curcumin] 500 mg PO BEDTIME 11/13/20 [History] Aspirin [Aspirin EC] 325 mg PO BID #84 tab 08/13/21 [Rx] LORazepam [Lorazepam] 0.5 mg PO DAILY PRN 08/13/21 [History] Naproxen 500 mg PO ASDIRECTED PRN 08/13/21 [History] Promethazine [Phenergan] 25 mg PO Q4H PRN 08/13/21 [History] Verapamil [Calan] 80 mg PO BID 08/13/21 [History] oxyCODONE 5 - 10 mg PO Q4H PRN #30 tab 08/13/21 [Rx] traMADol [Ultram] 50 - 100 mg PO Q6H PRN #30 tab 08/13/21 [Rx] - CURRENT (IN HOUSE) MEDS Current Meds: Current Medications Lactated Ringer's (Ringers, Lactated) 1,000 mls @ 125 mls/hr IV ASDIRECTED BELLA Stop: 08/14/21 23:00 Lidocaine/Sodium Bicarbonate (Lidocaine 1%/Sod Bicarbonate In Ns 8.4% 1 Ml Syringe) 0.25 ml IDERM ONETIME PRN PRN Reason: Prior to IV Start Stop: 08/14/21 18:00 Sodium Chloride (Sodium Chloride 0.9% 10 Ml Syringe) 10 ml FLUSH ASDIRECTED PRN PRN Reason: Keep Vein Open Stop: 08/14/21 18:00 Discontinued Medications Dexmedetomidine HCl (Dexmedetomidine 200 Mcg/2 Ml Sdv) Confirm Administered Dose 200 mcg .ROUTE .STK-MED ONE Stop: 08/14/21 07:28 Ropivacaine (Ropivacaine 0.5% 5 Mg/Ml 30 Ml Sdv) Confirm Administered Dose 30 ml .ROUTE .STK-MED ONE Stop: 08/14/21 07:28
[~2021-08-14 08:52] MED LIST changes: +Dexmedetomidine 200 MCG/2 ML SDV ONE; -Lactated Ringers 1,000 ML IV SCH; +Ropivacaine 0.5% 5 MG/ML 30 ML SDV ONE
[2021-08-14] MEDS ORDERED: Lidocaine 2% with EPINEPHrine 1:200,000 20 ML SDV ONE (09:03)
[2021-08-14] MEDS: Lactated Ringers 1,000 ML IV SCH ×2 (09:15→13:22)
[2021-08-14] MEDS ORDERED: Dexamethasone 4 MG/ML 5 ML MDV ONE (09:31)
[2021-08-14] MEDS ORDERED: Propofol 200 MG/20 ML SDV ONE ×2 (10:11→12:23)
[2021-08-14] MEDS ORDERED: Midazolam 1 MG/ML 2 ML SDV ONE (10:12)
[2021-08-14] MEDS ORDERED: fentaNYL 100 MCG/2 ML SDV ONE (10:12)
[2021-08-14] MEDS ORDERED: ceFAZolin 1 GM Vial ONE (11:35)
[2021-08-14] MEDS ORDERED: Ondansetron 4 MG/2 ML SDV ONE (11:55)
[2021-08-14] MEDS ORDERED: fentaNYL 100 MCG/2 ML SDV IVPUSH PRN (12:32)
[2021-08-14] MEDS ORDERED: HYDROmorphone 0.5 MG/0.5 ML Syringe IVPUSH PRN (12:32)
--- NOTE | 2021-08-14 13:16 | PCM48HPAN ---
Post Anesthesia Note - EVALUATION WITHIN 48HRS OF ANESTHETIC Vital Signs in Normal Range: Yes Patient Participated in Evaluation: Yes Respiratory Function Stable: Yes Airway Patent: Yes Cardiovascular Function Stable: Yes Hydration Status Stable: Yes Pain Control Satisfactory: Yes Nausea and Vomiting Control Satisfactory: Yes Mental Status Recovered: Yes Vital Signs: Last Vital Signs Temp 97.3 F 08/14/21 12:52 Pulse 84 08/14/21 12:52 Resp 12 08/14/21 12:52 BP 107/52 L 08/14/21 12:52 Pulse Ox 95 08/14/21 12:52
--- NOTE | 2021-08-14 13:19 | CR ---
Right first toe: 4 views of the right first toe were obtained utilizing C-arm device in the operating suite. Comparison: No prior right first toe imaging is available. Joint space narrowing is seen within the first MTP joint. Study shows placement of plate and screws across this joint compatible with surgical attempt for fusion. Soft tissue air is noted. Fluoroscopy time is given as 5.2 seconds. Impression: 1. Procedural study as described above. Diagnostic code #2
[2021-08-14] MEDS ORDERED: Ketorolac 30 MG/ML SDV IVPUSH ONE (14:00)
[2021-08-14 15:36] VITALS: BP 112/68; PULSE 72
--- NOTE | 2021-08-21 15:54 | PCM.PRNOTE ---
- Free Text/Narrative Note: Postoperative pain control requested by surgeon. Pre-op Dx: Left lateral malleolus fracture Surgery : Left lateral malleolus ORIF Anesthesia Procedure: Left Popliteal block with and left saphenous block at the ankle under U/S guidance. Requesting physician: Dr. Cuong Lopez Risks and benefits discussed with the patient preoperatively including infection, bleeding, incomplete or failed block, possible nerve damage, local anesthetic toxicity. Chart reviewed, VS stable. Permit signed. Patient in preoperative holding area, stable, alert and awake, positions herself in prone position with pillow support. Time out performed at 10:52. Oxygen 3L via NC. right lateral thigh area above the knee was prepped with Chloraprep x 1 and allowed to dry. Midazolam IV 2 mg anf Fentanyl 100 mcg given. Under aseptic technique, the right common peroneal and Left tibial nerves were identified under ultrasound prior to needle insertion. Nerve stimulation elicited foot plantar flexion loss of movement at 0.6 mA. Local infiltration with 1% Lidocaine. 4" Stimuplex needle #22 G was inserted under US guidance. Under direc t visualization of needle tip the injection of 2% Lidocaine with 1:200k epinephrine 8 ml , followed by 0.5% Ropivacaine with 1:200k epinephrine 18 mls (mixed with 30 mcg of Dexmedetomidine and 6 mg of Dexamethasone), total volume of 28 mls in divided doses, maintaining negative aspiration was completed without problems. Then the patient was positioned supine, the area above the left ankle was pre pped with Chloraprep x 1 and allowed to dry. Tourniquet applied to left calf to improve greater saphenous vein visualization. Under aseptic technique, the left greater saphenous vein identified under ultrasound prior to needle insertion. Local infiltration with 1% Lidocaine. 1.5" needle #25 G was inserted under US guidance. Under direct visualization of needle tip the injection of 0.5% Ropivacaine with 1:200k epinephrine 10 mls (mixed with 10 mcg of Dexmedetomidine and 2 mg of Dexamethasone), maintaining negative aspiration was completed in a crescent fashion around the greater saphenous vein without problems. No local anesthetic toxicity was noted. Patient is awake, stable and tolerated the procedure well. Time: 10:52 - 11:12 Please see attached U/S images
--- NOTE | 2021-08-24 17:04 | PCM.OPNOTE ---
- General Post-Op/Procedure Note Date of Surgery/Procedure: 08/14/21 Operative Procedure(s): right first MTP joint fusion Pre Op Diagnosis: right hallux rigidus Post-Op Diagnosis: Same Anesthesia Technique: MAC, Regional Block Primary Surgeon: Cuong Galloway Anesthesia Provider: Osvaldo Kuhn Seasoning Sprayer: Malia Mart EBL in mLs: 5 Complications: None Condition: Good
--- NOTE | 2021-08-25 08:44 | OR ---
DATE OF OPERATION: 08/14/2021 SURGEON: Cuong Galloway MD OPERATION PERFORMED: Right 1st metatarsophalangeal joint fusion. PREOPERATIVE DIAGNOSIS: Right hallux rigidus. POSTOPERATIVE DIAGNOSIS: Right hallux rigidus. ANESTHESIA: MAC with regional block. ANESTHESIA PROVIDER: Yoly Beaver GEAR GRINDING MACHINE OPERATOR: Malia Mart PA-C ESTIMATED BLOOD LOSS: 5 mL. COMPLICATIONS: None. CONDITION: Stable. DESCRIPTION OF PROCEDURE: The patient was identified in the preoperative holding area. Proper site was marked and identified by the surgeon. The patient was taken back to the operating theater, where after adequate anesthesia, right lower extremity was sterilely prepped and draped in usual sterile fashion. OR time-out was performed. The patient received 2 g IV Ancef. Right lower extremity was exsanguinated. Tourniquet was insufflated to 220 mmHg. A standard dorsal incision was made over the 1st MTP joint. Takedown of the collateral ligaments was done. The tendon was retracted medially. At this time, all adhesions were removed. Guide pin was then placed in a center-center position and a 22 mm reamer for the Diane 1st MTP fusion joint kit was utilized. At this time, the 20 mm was then utilized and was found to have good bony bleeding surface. All osteophytes were removed inferiorly as well as medially and laterally. Guide pin was then removed and was placed in the proximal phalanx. The corresponding reamer was then utilized for size 20 on that side. All osteophytes were removed. K-wire was then placed for a 3.0 partially-threaded screw and this was used to compress the joint in roughly neutral to 10 degrees of dorsiflexion and proper positioning. Otherwise, a dorsal T-plate was then placed under direct C- arm fluoroscopy, was found to be in adequate position. One nonlocking and one locking screw were then placed both proximally and distally to the fusion site and had adequate fixation of the fusion site and was in proper position on both AP and lateral views of the foot. Adequate saline was irrigated through the wound. 2-0 Vicryl was used subcutaneously and nylon was used for closure of the skin. The patient tolerated the procedure well, was placed in a posterior slab splint, and sent to the PACU in stable condition. MMODAL /[id number]
== END 2021-08-14 15:15 | disposition home or self-care (01) ==
LOC: JD.SDS 08:52
PROVIDERS: ATTEND Orthopaedic Surgery
DX: M20.21 Hallux rigidus, right foot (principal); F41.9 Anxiety disorder, unspecified; E78.00 Pure hypercholesterolemia, unspecified; G47.33 Obstructive sleep apnea (adult) (pediatric); K21.9 Gastro-esophageal reflux disease without esophagitis; Z79.899 Other long term (current) drug therapy; Z98.890 Other specified postprocedural states; Z91.012 Allergy to eggs; Z91.040 Latex allergy status; Z91.011 Allergy to milk products; Z91.018 Allergy to other foods
CPT/HCPCS: 01480; 64450; 76000; 76000-26; 76942; C1713; J0690; J1100; J1885; J2250; J2405; J2704; J2795; J3010; J7120

== ENCOUNTER 2022-04-06 06:09 | Day surgery (SDC) | payer OTHER ==
[~2022-04-06 06:09] MED LIST changes: -Dexmedetomidine 200 MCG/2 ML SDV ONE; +Lactated Ringers 1,000 ML IV SCH; -Ropivacaine 0.5% 5 MG/ML 30 ML SDV ONE; +Sodium Chloride 0.9% 10 ML Syringe FLUSH SCH
[2022-04-06] MEDS ORDERED: Bupivacaine 0.25% 10 ML SDV ONE (06:24)
[2022-04-06] MEDS ORDERED: Lidocaine 1% 30 ML SDV ONE (06:25)
[2022-04-06] MEDS ORDERED: fentaNYL 100 MCG/2 ML SDV ONE (06:39)
[2022-04-06] MEDS ORDERED: Propofol 200 MG/20 ML SDV ONE (06:39)
[2022-04-06] MEDS ORDERED: ceFAZolin 2 GM Vial ONE (06:40)
[2022-04-06] MEDS ORDERED: Midazolam 1 MG/ML 2 ML SDV ONE (06:40)
[2022-04-06] MEDS ORDERED: Lidocaine 1% 5 ML VIAL ONE (06:40)
[2022-04-06] MEDS ORDERED: Ondansetron 4 MG/2 ML SDV ONE (07:05)
[2022-04-06] MEDS ORDERED: Dexamethasone 4 MG/ML 5 ML MDV ONE (07:05)
[2022-04-06] MEDS ORDERED: Ondansetron 4 MG/2 ML SDV IVPUSH PRN (07:12)
[2022-04-06] MEDS ORDERED: Ketorolac 30 MG/ML SDV ONE (07:37)
[2022-04-06 07:44] VITALS: BP 96/70
[2022-04-06 09:52] VITALS: PULSE 78
== END 2022-04-06 09:40 | disposition home or self-care (01) ==
LOC: JD.SDS 06:09
PROVIDERS: ATTEND Orthopaedic Surgery
DX: L02.611 Cutaneous abscess of right foot (principal); G47.33 Obstructive sleep apnea (adult) (pediatric); E78.00 Pure hypercholesterolemia, unspecified; F41.9 Anxiety disorder, unspecified; Z90.49 Acquired absence of other specified parts of digestive tract; Z98.890 Other specified postprocedural states; Z91.018 Allergy to other foods; Z91.011 Allergy to milk products; Z91.040 Latex allergy status; Z91.012 Allergy to eggs; Z79.899 Other long term (current) drug therapy
CPT/HCPCS: 10060; J0690; J1100; J1885; J2250; J2405; J2704; J3010; J3490; J7120; 00400